=== PATIENT | female | born 1970 | race Hispanic/Latino ===

== ENCOUNTER 2018-03-16 11:43 | Inpatient (IN) | payer BC ==
[~2018-03-16] VITALS: Ht 160 cm; Wt 100.3 kg
[2018-03-16 14:10] LABS: BASOPHILS % (AUTO) 0.6 % (0.0-5.0); EOSINOPHILS % (AUTO) 0.3 % (0.0-8.0); HEMATOCRIT 40.2 % (36-48); LYMPHOCYTES % (AUTO) 30.1 % (21.0-51.0); MEAN CORPUSCULAR HEMOGLOBIN 31.1 pg (27.0-33.0); MEAN CORPUSCULAR HGB CONC 33.7 g/dL (32.0-36.0); MEAN CORPUSCULAR VOLUME 92.4 fL (79-99); MONOCYTES % (AUTO) 6.3 % (3.0-13.0); NEUTROPHILS % (AUTO) 62.7 % (40.0-77.0); NUCLEATED RED BLOOD CELLS 0.1 % (0.0-0.19); PLATELET COUNT (AUTO) 212 K/uL (130-400); RED BLOOD CELL COUNT(AUTO) 4.35 MIL/uL (4.00-5.50); RED CELL DISTRIBUTION WIDTH 13.1 % (11.0-15.5); WHITE BLOOD COUNT (AUTO) 8.4 K/uL (4.8-10.8)
[2018-03-16 15:00] LABS: CREATININE 0.7 mg/dL (0.5-1.5); POTASSIUM 3.4 mmol/L (3.5-5.1)
[2018-03-16 15:03] LABS: ALBUMIN 3.6 g/dL (3.5-5.0); BILIRUBIN,DIRECT 0.1 mg/dL (0.0-0.3); BILIRUBIN,TOTAL 0.7 mg/dL (0.2-1.0); TOTAL PROTEIN, SERUM 7.2 g/dL (6.0-8.3)
[2018-03-16 16:00] VITALS: BP 142/79
[2018-03-16] MEDS ORDERED: LACTULOSE 20 GM/30 ML UDCUP PO PRN (16:45)
[2018-03-16] MEDS ORDERED: ACETAMINOPHEN 325 MG TAB PO PRN (16:45)
[2018-03-16] MEDS ORDERED: MORPHINE-NS 50 MG/50 ML 50 ML IV PRN (16:45)
[2018-03-16] MEDS: ONDANSETRON HCL 4 MG/2 ML VIAL IVP PRN ×2 (17:01→23:42)
[2018-03-16 20:00] VITALS: BP 122/68
[2018-03-16] MEDS: FAMOTIDINE 20MG TAB 20 MG TAB PO SCH (22:37)
[2018-03-17] VITALS (7 sets, daily range): BP systolic 98–134; BP diastolic 60–90
[2018-03-17] MEDS: ZOLPIDEM TARTRATE 5 MG TAB PO PRN ×2 (01:57→22:41)
[2018-03-17] MEDS ORDERED: PANTOPRAZOLE 40 MG/VIAL IVP SCH (09:00)
[2018-03-17] MEDS: ONDANSETRON HCL 4 MG/2 ML VIAL IVP PRN ×2 (09:05→20:10)
[2018-03-17] MEDS: ENOXAPARIN SODIUM 40 MG/0.4 ML SYRINGE SQ SCH (09:10)
[2018-03-17] MEDS: FAMOTIDINE 20MG TAB 20 MG TAB PO SCH ×2 (10:41→20:10)
[2018-03-17] MEDS ORDERED: POTASSIUM CHLORIDE 10% ELIXIR 20 MEQ/15 ML UDCUP PO PRN (13:00)
[2018-03-17] MEDS ORDERED: POTASSIUM CHLORIDE 20MEQ/100ML 100 ML IV PRN ×2 (13:00)
[2018-03-17] MEDS ORDERED: LIDOCAINE HCL-MPF 1% 2ML VIAL IVP PRN ×2 (13:00)
[2018-03-17] MEDS: POTASSIUM CHLORIDE 20 MEQ ERTAB PO PRN ×2 (13:36→18:37)
[2018-03-18 04:00] VITALS: BP 121/60
[2018-03-18 07:49] VITALS: BP 137/85
[2018-03-18] MEDS ORDERED: PANTOPRAZOLE SODIUM 40 MG TABLET.DR PO SCH (08:15)
[2018-03-18] MEDS: FAMOTIDINE 20MG TAB 20 MG TAB PO SCH (08:51)
[2018-03-18] MEDS: ENOXAPARIN SODIUM 40 MG/0.4 ML SYRINGE SQ SCH (08:53)
[2018-03-18 11:34] VITALS: BP 132/64
[2018-03-18 15:32] VITALS: BP 133/78
== END 2018-03-18 09:05 | disposition home or self-care (01) | DRG 552 ==
LOC: EDH 11:43 → OBSVTOIN 11:44 → EDHIP 11:44 → 3BH 15:15
PROVIDERS: ADMIT Internal Medicine; ATTEND Internal Medicine
DX: M53.3 Sacrococcygeal disorders, not elsewhere classified (principal); E87.6 Hypokalemia
CPT/HCPCS: 36415; 72195; 80048; 80076; 84132; 85025; 97039; C9113; J1650; J2270; J2405

== ENCOUNTER → 2018-08-04 | Outpatient (CLI) | payer BC | END | disposition home or self-care (01) | LOC: RAH 15:31 | PROVIDERS: ATTEND Neuromusculoskeletal Medicine & OMM | DX: S33.140A Subluxation of L4/L5 lumbar vertebra, initial encounter (principal); M48.061 Spinal stenosis, lumbar region without neurogenic claudication; M48.07 Spinal stenosis, lumbosacral region; X58.XXXA Exposure to other specified factors, initial encounter; Y93.89 Activity, other specified; Y92.89 Other specified places as the place of occurrence of the external cause; Y99.8 Other external cause status | CPT/HCPCS: 72114; 72148 ==